=== PATIENT | female | born 1985 | race African-American/Black ===

== ENCOUNTER → 2022-01-26 | Day surgery (SDC) | payer OTHER ==
[~2022-01-26] MED LIST: Acetaminophen 500 MG TAB ONE; Acetaminophen 500 MG TAB PO SCH; Iron Sucrose Complex 500 MG in Sodium Chloride 0.9% 250 ML 250 ML IVPB SCH
== END ==
LOC: CSHLAB 08:44
PROVIDERS: ATTEND Family Medicine
DX: O99.019 Anemia complicating pregnancy, unspecified trimester (principal); D64.9 Anemia, unspecified
CPT/HCPCS: J1756; J7050

== ENCOUNTER 2022-02-07 16:08 | Day surgery (SDC) | payer OTHER ==
[2022-02-07] MEDS ORDERED: hydrALAZINE 20 MG/ML VIAL SLOW IVP PRN (17:04)
== END 2022-02-07 18:14 | disposition home or self-care (01) ==
LOC: CSHLD/OP 16:08
PROVIDERS: ATTEND Family Medicine
DX: O47.1 False labor at or after 37 completed weeks of gestation (principal); Z3A.37 37 weeks gestation of pregnancy
CPT/HCPCS: 99283

== ENCOUNTER 2022-02-19 09:26 | Outpatient (CLI) | payer OTHER | END 2022-02-19 09:27 | disposition home or self-care (01) | LOC: CSHLAB 09:26 | PROVIDERS: ATTEND Family Medicine | DX: Z20.822 Contact with and (suspected) exposure to COVID-19 (principal) | CPT/HCPCS: 87811 ==

== ENCOUNTER 2022-02-20 14:48 | Inpatient (IN) | payer OTHER ==
[~2022-02-20 14:48] MED LIST changes: -Acetaminophen 500 MG TAB ONE; -Acetaminophen 500 MG TAB PO SCH; +Bupivacaine/Epinephrine 0.25% 30 ML VIAL ONE; -Iron Sucrose Complex 500 MG in Sodium Chloride 0.9% 250 ML 250 ML IVPB SCH
[2022-02-20 15:46] VITALS: BMI 31.4
[2022-02-20 15:59] LABS: Fetal Membranes Rupture No Membranes Rupture (No Rupture)
[2022-02-20] MEDS ORDERED: Acetaminophen 500 MG TAB PO PRN (16:31)
[2022-02-20] MEDS ORDERED: HYDROcodone/Acetaminophen 5/325 mg Tablet PO PRN (16:31)
[2022-02-20] MEDS ORDERED: Butorphanol Tartrate 1 MG/ML VIAL SLOW IVP PRN (16:31)
[2022-02-20] MEDS ORDERED: Lidocaine 1% (PF) 30 ML VIAL SC PRN (16:31)
[2022-02-20] MEDS ORDERED: Ibuprofen 800 MG TAB PO PRN (16:31)
[2022-02-20] MEDS ORDERED: Diphenoxylate HCl/Atropine Tablet PO PRN (16:31)
[2022-02-20] MEDS ORDERED: hydrALAZINE 20 MG/ML VIAL SLOW IVP PRN (16:31)
[2022-02-20] MEDS ORDERED: Ondansetron PF 4 MG/2 ML Vial IVP PRN (16:31)
[2022-02-20] MEDS ORDERED: Misoprostol 200 MCG TAB PR PRN (16:31)
[2022-02-20] MEDS ORDERED: Methylergonovine 0.2 MG/ML VIAL IM PRN (16:31)
[2022-02-20] MEDS ORDERED: Carboprost 250 MCG/ML AMP IM PRN (16:31)
[2022-02-20] MEDS ORDERED: Promethazine HCl 25 MG/ML VIAL IM PRN (16:31)
[2022-02-20] MEDS ORDERED: Misoprostol 100 MCG TAB PO SCH (16:45)
[2022-02-20] MEDS ORDERED: NS w/ Oxytocin 30 units 500 ML IV SCH ×2 (16:45)
[2022-02-20] MEDS ORDERED: Lactated Ringer's 1,000 ML IV SCH (16:45)
[2022-02-20] MEDS ORDERED: Penicillin G Potassium 5 MILL.UNITS in Sodium Chloride 0.9% 100 ML IVPB SCH (16:45)
[2022-02-20 17:01] LABS: Hemoglobin 9.9 g/dL (12.0-15.5); Mean Corpuscular HGB CONC 33.4 g/dL (32.0-36.0); Mean Corpuscular Hemoglobin 26.8 pg (27.0-33.0); Mean Platelet Volume 10.4 fl (7.4-10.4); Platelet Count 219 10x3/uL (150-450); RBC Distribution Width 19.6 % (11.5-14.5); White Blood Cell (WBC) Count 6.6 10x3/uL (3.5-10.5)
[2022-02-20 17:46] LABS: Hep B Surf Ag Non-Reactive S/CO (NonReactive); Syphilis Antibody Nonreactive (Nonreactive); Syphilis Antibody Index 0.05 S/CO (<1.00 Non-Reactive)
[2022-02-20 18:38] LABS: HBSAg Index 0.28 S/CO (0-0.99)
[2022-02-20] MEDS ORDERED: Fentanyl 2 mcg/Bup 0.1% Cadd 100 ML ONE (20:44)
[2022-02-20] MEDS ORDERED: Penicillin G 2.5 MILL.units 2.5 MILL.UNITS in Premix Bag 1 BAG IVPB SCH (20:45)
[2022-02-21] MEDS ORDERED: Ondansetron PF 4 MG/2 ML Vial IVP PRN (04:52)
[2022-02-21] MEDS ORDERED: HYDROcodone/Acetaminophen 5/325 mg Tablet PO PRN (04:52)
[2022-02-21] MEDS ORDERED: Benzocaine-Menthol 82.5 ML CAN TOP PRN (04:52)
[2022-02-21] MEDS ORDERED: Milk Of Magnesia 30 ML UDCUP PO PRN (04:52)
[2022-02-21] MEDS ORDERED: Promethazine HCl 25 MG/ML VIAL IM PRN (04:52)
[2022-02-21] MEDS ORDERED: diphenhydrAMINE 25 MG CAP PO PRN (04:52)
[2022-02-21] MEDS ORDERED: Lanolin Ointment 7 GM TUBE TOP PRN (04:52)
[2022-02-21] MEDS ORDERED: Boostrix 0.5 ML (Tdap) VIAL IM ONE (04:52)
[2022-02-21] MEDS ORDERED: Bisacodyl 10 MG SUPP PR PRN (04:52)
[2022-02-21] MEDS ORDERED: hydrALAZINE 20 MG/ML VIAL SLOW IVP PRN (04:52)
[2022-02-21] MEDS ORDERED: NS w/ Oxytocin 30 units 500 ML IV SCH (05:00)
[2022-02-21] MEDS: Ibuprofen 800 MG TAB PO SCH ×3 (06:08→21:36)
[2022-02-21] MEDS: Ferrous Sulfate 325 MG TAB PO SCH ×2 (09:07→17:49)
[2022-02-21] MEDS: Docusate 100 MG CAP PO SCH ×2 (09:07→21:36)
[2022-02-21] MEDS: HYDROcodone/Acetaminophen 5/325 mg Tablet PO PRN ×2 (09:07→14:05)
[2022-02-21] MEDS: Prenatal Vitamin 1 TAB PO SCH (09:07)
[2022-02-22] MEDS: Ibuprofen 800 MG TAB PO SCH ×3 (04:51→21:52)
[2022-02-22] MEDS: HYDROcodone/Acetaminophen 5/325 mg Tablet PO PRN ×3 (04:52→18:12)
[2022-02-22] MEDS: Docusate 100 MG CAP PO SCH ×2 (09:23→21:53)
[2022-02-22] MEDS: Prenatal Vitamin 1 TAB PO SCH (09:23)
[2022-02-22] MEDS: Ferrous Sulfate 325 MG TAB PO SCH ×2 (09:24→18:12)
[2022-02-23] MEDS: Ibuprofen 800 MG TAB PO SCH ×2 (05:56→13:57)
[2022-02-23] MEDS: HYDROcodone/Acetaminophen 5/325 mg Tablet PO PRN ×3 (06:03→17:32)
[2022-02-23 07:48] VITALS: BP 125/74; TEMP 98
[2022-02-23] MEDS: Prenatal Vitamin 1 TAB PO SCH (08:24)
[2022-02-23] MEDS: Ferrous Sulfate 325 MG TAB PO SCH ×2 (08:24→17:32)
[2022-02-23] MEDS: Docusate 100 MG CAP PO SCH (08:24)
== END 2022-02-23 17:40 | disposition home or self-care (01) | DRG 807 ==
LOC: CSHLD 14:48 → CSHPP 02-21 04:05
PROVIDERS: ADMIT Family Medicine; ATTEND Family Medicine
PROC: 10E0XZZ Delivery of Products of Conception, External Approach (ICD-10-PCS; principal; 2022-02-21)
PROC: 0HQ9XZZ Repair Perineum Skin, External Approach (ICD-10-PCS; 2022-02-21)
PROC: 3E0P7VZ Introduction of Hormone into Female Reproductive, Via Natural or Artificial Opening (ICD-10-PCS; 2022-02-21)
DX: O42.02 Full-term premature rupture of membranes, onset of labor within 24 hours of rupture (principal); Z37.0 Single live birth; O99.824 Streptococcus B carrier state complicating childbirth; Z3A.39 39 weeks gestation of pregnancy; O70.0 First degree perineal laceration during delivery
CPT/HCPCS: 51702; 84112; 85027; 86780; 86850; 86900; 86901; 87340; 99285; J0595; J2540; J2590; J3490